=== PATIENT | male | born 1950 | race Caucasian/White ===

== ENCOUNTER → 2019-04-26 | Outpatient (CLI) | payer OTHER, BC ==
[~2019-04-26] VITALS: Ht 170.2 cm; Wt 108.9 kg
[~2019-04-26] MED LIST: CENTRUM SILVER1 EAC4 PO; FLUTICASONE PRO16 GM NASAL; OMEPRAZOLE 20 M20 M1 PO; PIROXICAM20 MG PO; TESTOSTERO200 MG/1 M IM
--- NOTE | ~2019-04-26 | P ---
[facility] [place] [address] PROCEDURE REPORT Name: AICHA TODD Room #: REG [facility]#: [id number] Admission: 04/26/19 ������������������ Attend Phys: Robbie Barreto MD Discharge: ������������������ Date of : 48 Report #: [id number] THIS REPORT FOR: //name// CC: Robbie Davis MD BRIEF HISTORY: The patient is a 69-year-old male with a history of multiple colon polyps including an advanced adenoma removed in a piecemeal fashion from the hepatic flexure a number of years ago. PREOPERATIVE DIAGNOSIS: High risk screening colonoscopy due to history of polyps and advanced adenoma. POSTOPERATIVE DIAGNOSES: 1. Diminutive polyp, splenic flexure. 2. Mild to moderate sigmoid diverticulosis coli. MEDICATIONS: Deep sedation with propofol per Anesthesia. SPECIMEN: Polyp from splenic flexure. ESTIMATED BLOOD LOSS: 3 mL. PROCEDURE: Colonoscopy to cecum and terminal ileum with biopsy. FINDINGS: Prior to propofol sedation, procedure of colonoscopy discussed with the patient as well as potential risks and its complications. He indicates he understands and desires to proceed. DESCRIPTION OF PROCEDURE: With the patient in left lateral decubitus position, digital examination was completed, which revealed no abnormalities. Subsequently, the Olympus videocolonoscope was introduced in the rectum, advanced under direct vision to the cecum. Done with minimal difficulty. Cecum was identified by the ileocecal valve and the appendiceal orifice. I was able to visualize the distal segment of the terminal ileum, which was inspected and noted to be unremarkable. At that point, the scope was slowly withdrawn and careful circumferential views were obtained. Upon slow withdrawal of the scope, the prep was good. The mucosa was within normal limits, normal vascular pattern, normal light reflex. As we withdrew the scope, no abnormalities were noted until the splenic flexure was reached, at which point a diminutive polyp was seen and removed with biopsy forceps. The scope was further withdrawn and no additional abnormalities were seen until the sigmoid colon was reached, at which point he was noted to have [id number] diverticular disease without endoscopic evidence of diverticulitis. Scope was further withdrawal, no additional abnormalities were seen. Scope was withdrawn in the rectum, no abnormalities were seen. Upon retroflexion, no abnormalities were seen. Scope [address] [address] PROCEDURE REPORT Name: AICHA TODD Room #: REG [facility]#: [id number] Admission: 04/26/19 ������������������ Attend Phys: Robbie Barreto MD Discharge: ������������������ Date of : 48 Report #: [id number] was withdrawn. The patient tolerated the procedure well. CONDITION OF THE PATIENT UPON DISCHARGE: Following the procedure, the patient drowsy, aroused, and conversant and will be discharged home when fully ambulatory. INSTRUCTIONS TO THE PATIENT AND FAMILY AT THE TIME OF DISCHARGE: We will follow up on the path. However, in view of his history of advanced adenoma, he should return in 5 years for a high risk screening colonoscopy. Previous colonoscopy was approximately 3 years ago. Withdrawal time from the cecum was 10 minutes 10 seconds. ��������������������������������������������� ���������������������������������������� By: ��������������������������������������������� 1037 1430 Robbie Barreto MD /nt
--- NOTE | 2019-04-27 16:06 | PATH ---
[facility] [address] [place] [address] PATHOLOGY RPT PROCEDURE Name: AICHA TODD SR [id number] ������������������ Admission: 04/26/19 ������������������ Date of : 48 Discharge: Report #: [id number] Path Case #: [id number] [facility] Accession Number: [id number] . 01 Material submitted: . splenic flexure - BIOPSY OF SPLENIC FLEXURE POLYP . 01 Clinical history: . Hx of polyps . 02 Diagnosis: Polyp, splenic flexure, endoscopic biopsy: - Tubular adenoma. - Negative for high grade dysplasia. (IUV/db; 04/27/2019) LBQ 04/27/2019 1430 Local . 02 Electronically signed: . Denise Wu MD, Pathologist NPI- [id number] . 01 Gross description: . Received in formalin labeled "Todd Sr, Aicha, BX of splenic flexure polyp," is a single segment of card soft tissue measuring 0.5 cm in maximum dimension. The specimen is entirely submitted in cassette A1. (TSD; 04/26/2019) TOB/TOB 04/26/20196 Local . 02 Pathologist provided ICD-10: D12.3, Z86.010 . 02 CPT . 991826 Specimen Comment: A courtesy copy of this report has been sent to Specimen Comment: [phone], . Specimen Comment: Report sent to / DR PUENTE Performed at: [address], [place] [id number] MD Severino Lehman MD Phone: [phone] Performed at: [address] [id number] MD Denise Wu MD Phone: [phone]
== END | disposition home or self-care (01) ==
LOC: GI 07:11
DX: Z12.11 Encounter for screening for malignant neoplasm of colon (principal); Z86.010 Personal history of colon polyps; D12.3 Benign neoplasm of transverse colon; K57.30 Diverticulosis of large intestine without perforation or abscess without bleeding; K21.9 Gastro-esophageal reflux disease without esophagitis; K44.9 Diaphragmatic hernia without obstruction or gangrene; Z87.891 Personal history of nicotine dependence; Z85.828 Personal history of other malignant neoplasm of skin; Z98.890 Other specified postprocedural states; Z79.899 Other long term (current) drug therapy; Z88.2 Allergy status to sulfonamides; Z88.8 Allergy status to other drugs, medicaments and biological substances
CPT/HCPCS: 62110; 62900